=== PATIENT | female | born 2000 | race African-American/Black ===

== ENCOUNTER 2018-04-17 03:33 | Day surgery (SDC) | payer OTHER ==
[2018-04-17 04:18] VITALS: BP 137/78; TEMP 99; BMI 47.5
[2018-04-17 05:00] LABS: Bilirubin Negative (Negative); Blood, Urine Negative (Negative); Clarity CLEAR (Clear); Glucose, Urine (Dipstick) Negative (Negative); Leukocyte Moderate (Negative); Nitrite Negative (Negative); Protein, Urine (Dipstick) Negative (Neg-Trace); Specific Gravity, Urine 1.011 (1.002-1.036); pH, Urine 6.5 (5.0-9.0)
[2018-04-17 05:02] LABS: Bacteria/HPF None Seen HPF (None Seen); Hyaline Casts/LPF 0-3 HYALINE CAST LPF (0-3 Hyaline); RBC/HPF 0-3 HPF (0-3); Squamous Epithelial 0-3 HPF (0-3); WBC/HPF 21-50 HPF (0-3)
--- NOTE | 2018-04-17 06:32 | SS ---
LABOR AND DELIVERY TRIAGE NOTE DATE OF EVALUATION: 04/17/2018 REGULAR PHYSICIAN: Shu Flores M.D. EVALUATING PHYSICIAN: Anshul Ramos M.D. CHIEF COMPLAINT: Vomiting x2 to 3 at home. HISTORY OF PRESENT ILLNESS: Ms. La is a 18-year-old black G1, P0, estimated date of confinement of 07/03/2018, who presents early this morning complaining of 3 episodes of vomiting at home with associated back pain. She denies fever or chills. At the present time, she no longer has nausea or pain. She is spitting into a cup as I interview her in Triage. Her care has been with Dr. Shu Flores. It has reportedly been uncomplicated. PAST MEDICAL HISTORY: None. PAST SURGICAL HISTORY: None. CURRENT MEDICATIONS: vitamins. ALLERGIES: No known allergies. SOCIAL HISTORY: Denies tobacco, alcohol, or drug use. FAMILY HISTORY: Unremarkable. REVIEW OF SYSTEMS: Positive for vomiting, now resolved. Denies fever, chills, vaginal bleeding or ruptured membranes. PHYSICAL EXAMINATION: VITAL SIGNS: In triage, vital signs are stable. She is afebrile. ABDOMEN: Soft, nontender and gravid. No CVA tenderness is elicited. heart tones are stable. No contractions are seen. Urinalysis on microscopic is nonfocal. ASSESSMENT: 1. A 29-week intrauterine . 2. Nonfocal exam with symptoms resolved. 3. Ptyalism PLAN: The patient will be discharged to home. She is told to hydrate herself well at home and perhaps using acid should she have any further episodes. She was given complete labor precautions. I did discuss the case with Dr. Flores and she agrees. [facility]OSPITALMiguelangel
== END 2018-04-17 05:55 | disposition home or self-care (01) ==
LOC: L&D/OP 03:33
PROVIDERS: ATTEND Obstetrics & Gynecology
DX: O99.613 Diseases of the digestive system complicating pregnancy, third trimester (principal); K11.7 Disturbances of salivary secretion; O99.89 Other specified diseases and conditions complicating pregnancy, childbirth and the puerperium; M54.5 Low back pain; Z3A.29 29 weeks gestation of pregnancy
CPT/HCPCS: 81001; 99283

== ENCOUNTER 2018-06-28 08:53 | Inpatient (IN) | payer OTHER ==
[2018-06-28 09:36] VITALS: BMI 45.6
[2018-06-28] MEDS ORDERED: Lidocaine 1% (PF) 30 ML VIAL SC PRN (11:28)
[2018-06-28] MEDS ORDERED: Zolpidem Tartrate 5 MG TAB PO PRN (11:28)
[2018-06-28] MEDS ORDERED: Ondansetron PF 4 MG/2 ML Vial IVP PRN ×2 (11:28→14:24)
[2018-06-28] MEDS ORDERED: Acetaminophen 500 MG TAB PO PRN (11:28)
[2018-06-28] MEDS ORDERED: Ibuprofen 800 MG TAB PO PRN (11:28)
[2018-06-28] MEDS ORDERED: NS / Oxytocin 40 units/1000ml 1,000 ML IV PRN (11:28)
[2018-06-28] MEDS ORDERED: Butorphanol Tartrate 1 MG/ML VIAL SLOW IVP PRN (11:28)
[2018-06-28] MEDS ORDERED: HYDROcodone/Acetaminophen 5/325 mg Tablet PO PRN ×2 (11:28)
[2018-06-28] MEDS ORDERED: Promethazine HCl 25 MG/ML VIAL IM PRN ×2 (11:28→14:24)
[2018-06-28] MEDS ORDERED: Docusate 100 MG CAP PO PRN (11:28)
[2018-06-28] MEDS ORDERED: NS w/ Oxytocin 10 units 500 ML IV SCH (11:30)
--- NOTE | 2018-06-28 11:55 | PDOC.LDHP ---
Labor and Delivery H&P Chief complaint: contractions HPI: This is a 18 yo @ 39.2 weeks presents with complaint of ctx. Pt states ctx started early this morning. Reports every 3 minutes. Reports have increased in pain. Denies any LOF. Reports passing mucous plug. Denies any urinary symptoms and burning with urination. Denies any headaches, swelling or vision changes. Denies any SOB. Current gestational age (weeks): 39 (2 days) Due date: 07/03/18 Grav: 1 Para: 0 OB History Details: None Current complications: gestational hypertension Abnormal US findings: No Past Medical History: None Current medications: pre- vitamins Allergies/Adverse Reactions: Allergies Allergy/AdvReac Type Severity Reaction Status Date / Time No Known Allergies Allergy Unverified 04/17/18 04:20 Social history: none - Physical Exam Vital signs reviewed and normal: yes General: NAD, resting, breathing through contractions Heart: RRR Lungs: nonlabored breathing Abdomen: NTTP Extremeties: no edema FHT: category 1 Marshall contractions every: 3 minutes - Vaginal Exam cm dilated: 3 Effacement: 75% Station: -2 - Assessment Will rule out labor - Plan Plan: observation in L&D, other (Faculty attestation: Care reviewed by me, patient assessed and I agree with plan of care.) -: Will monitor pt for another 2 hours. Will recheck to see if she has made change. BP stable. No severe range pressures. -Pt FHT initially had minimal variability per nurse. During assessment Cat 1 strip noted. Good moderate variability.
[2018-06-28 11:57] LABS: Hemoglobin 11.2 g/dL (12.0-16.0); Mean Corpuscular HGB CONC 32.9 g/dL (32.0-36.0); Mean Corpuscular Hemoglobin 26.9 pg (25.0-35.0); Mean Corpuscular Volume 81.8 fL (78.0-98.0); Mean Platelet Volume 10.4 fL (7.4-10.4); Platelet Count 223 thou/uL (130-400); RBC Distribution Width 13.7 % (11.5-14.5); Red Blood Cell (RBC) Count 4.15 mill/uL (4.00-5.20)
[2018-06-28 12:43] LABS: Syphilis Antibody Nonreactive (Nonreactive); Syphilis Antibody Index 0.03 S/CO (<1.00 Non-Reactive)
[2018-06-28 12:52] LABS: HBSAg Index 0.17 S/CO (0-0.99); Hep B Surf Ag Non-Reactive S/CO (NonReactive)
[2018-06-28] MEDS ORDERED: Fentanyl 4 mcg/Bup 0.1% Cadd 100 ML ONE ×2 (13:14→20:35)
[2018-06-28] MEDS ORDERED: Lidocaine 1.5% w/Epi 1:200K 30 ML VIAL (Epid Use) ONE (14:02)
[2018-06-28] MEDS ORDERED: diphenhydrAMINE 50 MG/ML VIAL IVP PRN (14:24)
[2018-06-28] MEDS ORDERED: Acetaminophen 325 MG TAB PO PRN (14:24)
[2018-06-28] MEDS ORDERED: Eucerin (Mineral Oil/Petrolatum,White) 30 gm Jar TOP PRN (14:24)
[2018-06-28] MEDS ORDERED: Lactated Ringer's 500 ML IV PRN (14:24)
[2018-06-28] MEDS ORDERED: Naloxone HCl 0.4 mg/ml Vial IVP PRN ×2 (14:24)
[2018-06-28] MEDS ORDERED: ePHEDrine/0.9% NaCl/PF SYRINGE 50 mg/10 ml SLOW IVP PRN (14:24)
[2018-06-28] MEDS ORDERED: Fentanyl 4 mcg/Bupivacaine 0.1% Cassette 100 ML EPIDURAL SCH (14:30)
[2018-06-28] MEDS ORDERED: Communication Order-Pharmacy FS SCH (14:30)
[2018-06-28] MEDS ORDERED: Bupivacaine 0.25% HCL 30 ML VIAL ONE (17:00)
[2018-06-28] MEDS ORDERED: Lactated Ringer's 1,000 ML IV SCH (18:15)
[2018-06-29] MEDS ORDERED: Benzocaine/Menthol 20-0.5% 60 ML CAN TOP PRN (00:38)
[2018-06-29] MEDS ORDERED: Lanolin Ointment 7 GM TUBE TOP PRN (00:38)
[2018-06-29] MEDS ORDERED: Ondansetron PF 4 MG/2 ML Vial IVP PRN (00:38)
[2018-06-29] MEDS ORDERED: HYDROcodone/Acetaminophen 5/325 mg Tablet PO PRN ×2 (00:38)
[2018-06-29] MEDS ORDERED: diphenhydrAMINE 25 MG CAP PO PRN (00:38)
[2018-06-29] MEDS ORDERED: Milk Of Magnesia 30 ML UDCUP PO PRN (00:38)
[2018-06-29] MEDS ORDERED: Bisacodyl 10 MG SUPP PR PRN (00:38)
[2018-06-29] MEDS ORDERED: NS / Oxytocin 40 units/1000ml 1,000 ML IV SCH (00:45)
[2018-06-29] MEDS: Acetaminophen 500 MG TAB PO PRN (02:08)
[2018-06-29] MEDS: Ampicillin/Sulbactam 3 GM in Sodium Chloride 0.9% 100 ML IVPB SCH ×5 (02:55→21:52)
[2018-06-29] MEDS: Ibuprofen 800 MG TAB PO SCH ×3 (06:06→21:36)
[2018-06-29] MEDS ORDERED: Adacel (T-DAP) 0.5 ML SYRINGE IM ONE (09:00)
[2018-06-29] MEDS ORDERED: Polyethylene Glycol 3350 17 GM Packet PER TUBE SCH (09:00)
[2018-06-29] MEDS: Docusate Calcium (SURFAK) 240 MG CAP PO SCH ×2 (10:13→21:36)
[2018-06-29] MEDS: Ferrous Sulfate 325 MG TAB PO SCH ×2 (10:13→17:35)
[2018-06-29] MEDS: Prenatal Vitamin 1 TAB PO SCH (10:14)
[2018-06-30] MEDS: Ibuprofen 800 MG TAB PO SCH ×3 (05:52→22:00)
[2018-06-30] MEDS: Docusate Calcium (SURFAK) 240 MG CAP PO SCH ×2 (09:53→22:00)
[2018-06-30] MEDS: Prenatal Vitamin 1 TAB PO SCH (09:53)
[2018-06-30] MEDS: Ferrous Sulfate 325 MG TAB PO SCH (17:53)
[2018-06-30] MEDS: Acetaminophen 500 MG TAB PO PRN (20:20)
[2018-07-01] MEDS: Ibuprofen 800 MG TAB PO SCH (05:25)
[2018-07-01 07:57] VITALS: BP 135/72; TEMP 98.5
--- NOTE | 2018-07-01 08:33 | DN ---
DATE OF PROCEDURE: 06/29/2018 DATE OF DELIVERY: 06/29/2018. PREOPERATIVE DIAGNOSES: 1. A 18-year-old female, G1, at 39 weeks and 1 day admitted for active labor. 2. Amniotomy performed with light meconium. 3. GBS negative. 4. Elevated body mass index of 47. 5. Teen . 6. Anemia of . POSTOPERATIVE DIAGNOSES: 1. A 18-year-old female, G1, at 39 weeks and 1 day admitted for active labor. 2. Amniotomy performed with light meconium. 3. GBS negative. 4. Elevated body mass index of 47. 5. Teen . 6. Anemia of . 7. Live born male infant with Apgars of 9 and 9 at one and five minutes respectively, weighing 7 pounds 7 ounces. CLINICAL HISTORY: This patient is a 18-year-old, G1, who presented the evening of June 28 with a complaint of regular contractions that were painful. She was checked by the laborist and noted to be 4 cm and regularly deon. She was admitted after admission. An amniotomy was performed with noted meconium fluid. The patient had a category 1 tracing, and IUPC was placed for ease and monitoring the patient given her body habitus of body mass index of 47. She was noted to have contractions every 5 minutes, but was not making cervical change. Pitocin was then added and titrated accordingly for cervical change. The patient continued in thinning effacement and got to 0 station; however, she did not go pass 5 cm. The physician then requested maternal maneuvers with repositioning the patient. The patient did request an epidural for maternal analgesia and after this was placed, she noted progression rapidly to eventually complete cervical dilation in +2 station and then she began to push. DETAILS OF PROCEDURE: With good maternal effort, the patient was able to push the vertex to the BABAR position. The internal monitors were taken off, and the patient delivered the vertex. The anterior shoulder followed by the posterior shoulder followed by the remainder of the infant's body was delivered. The cord was doubly clamped and cut, the infant cried, vigorous cry. He was placed on the maternal abdomen for continued stimulation and attention. The cord blood was obtained. The placenta was then delivered spontaneously intact with 3-vessel cord. Uterine massage was then performed to facilitate decrease in bleeding and uterine contraction. A manual evacuation of cord was performed to assist in this process. The patient at that time was noted to feel significantly warm and shortly there after the , she spiked a fever. Unasyn 3 g IV q.6 hours was initiated. The patient had no other signs of infection. Exploration of the vagina, introitus, and cervix noted a midline first-degree tear, which was repaired in a running locking fashion with excellent hemostasis. At this time also, it was noted some perianal condyloma, which had not been noted before. The patient was cleansed and placed into the recovery position after given good draping and padding. The patient was allowed to recover in her Labor and Delivery room with her . Again, the infant was male, weighing 7 pounds 7 ounces with Apgars of 9 and 9 at one and five minutes respectively. There were no other issues surrounding this delivery. Job ID: [id number]
[2018-07-01] MEDS: Prenatal Vitamin 1 TAB PO SCH (09:21)
[2018-07-01] MEDS: Ferrous Sulfate 325 MG TAB PO SCH (09:21)
[2018-07-01] MEDS: Docusate Calcium (SURFAK) 240 MG CAP PO SCH (09:21)
== END 2018-07-01 12:50 | disposition home or self-care (01) | DRG 807 ==
LOC: L&D/OP 08:53 → L&D 11:05 → 3SE 06-29 03:08 → 3SW 07-01 05:32
PROVIDERS: ADMIT Obstetrics & Gynecology; ATTEND Obstetrics & Gynecology
PROC: 10907ZC Drainage of Amniotic Fluid, Therapeutic from Products of Conception, Via Natural or Artificial Opening (ICD-10-PCS; 2018-06-28)
PROC: 3E033VJ Introduction of Other Hormone into Peripheral Vein, Percutaneous Approach (ICD-10-PCS; 2018-06-28)
PROC: 10E0XZZ Delivery of Products of Conception, External Approach (ICD-10-PCS; principal; 2018-06-29)
PROC: 0HQ9XZZ Repair Perineum Skin, External Approach (ICD-10-PCS; 2018-06-29)
DX: O70.0 First degree perineal laceration during delivery (principal); Z37.0 Single live birth; Z3A.39 39 weeks gestation of pregnancy; O13.4 Gestational [pregnancy-induced] hypertension without significant proteinuria, complicating childbirth; O99.02 Anemia complicating childbirth; D64.9 Anemia, unspecified
CPT/HCPCS: 51702; 85027; 86780; 86850; 86900; 86901; 87340; 99285; J0295; J2001; J2405; J7050; S0020